=== PATIENT | female | born 1980 | race Caucasian/White ===

== ENCOUNTER 2016-09-22 20:53 | Emergency (ER) | payer OTHER ==
[~2016-09-22] VITALS: Ht 160 cm; Wt 78.0 kg
[~2016-09-22 20:53] MED LIST: ADIPEX-P37.5 MG PO; AMITRIPTYLIN25 MG PO; AZITHROMYCIN250 MG PO; BENTYL10 MG PO; CLARITIN10 M1 PO; CYMBALTA30 MG PO; DILAUDID 2MG2 MG/TA1 PO; DILAUDID2 MG PO; ESTRACE2 MG PO; FIORICE1 PO; FIORICET PO; FLEXERIL5 MG PO; IBUPROFEN600 MG PO; IMITREX50 M1 PO; INDERAL 40MG TA40 MG PO; KEFLEX500 MG PO; LORTAB 10 PO; LORTAB 5-325 MG1 TAB PO; LORTAB5 PO; LYRICA50 MG PO; MEDDOSEPAK PO; METHOCARBAMOL750 MG PO; METOPROL TAR25 MG PO; NAPROSYN500 MG PO; NO CURRENT MEDS; PEPCID20 MG PO; PHENERGAN IN25 MG/ML PO; PHENERGAN25 MG/TAB PO; RESTASIS0.05 % OP; RESTASIS0.05 % OU; SUMATRIPTA1 SC; TAM75CAP OR; TOPIRAMATE25 MG PO; TOPIRAMATE50 MG PO; TORADOL PO; ULTRAM50 M1 PO; ULTRAM50 MG OR; VENLAFAXINE H37.5 MG PO; ZOFRAN ODT4 MG PO; ZOFRAN4 MG/TAB PO; ZYRTEC10 MG PO
[2016-09-22] MEDS ORDERED: IBUPROFEN600 MG PO (22:17)
[2016-09-22] MEDS ORDERED: FLEXERIL PO (22:17)
[2016-09-22 22:39] VITALS: BP 112/76
== END 2016-09-22 22:40 | disposition home or self-care (01) | DRG 552 ==
LOC: ED 20:53
DX: M54.42 Lumbago with sciatica, left side (principal); F17.210 Nicotine dependence, cigarettes, uncomplicated; M79.7 Fibromyalgia; M51.26 Other intervertebral disc displacement, lumbar region

== ENCOUNTER 2016-10-27 21:15 | Emergency (ER) | payer OTHER ==
[~2016-10-27] VITALS: Ht 160 cm; Wt 80.4 kg
[~2016-10-27 21:15] MED LIST changes: +FLEXERIL PO
[2016-10-27] MEDS ORDERED: TRICOR145 MG PO (22:14)
[2016-10-27] MEDS ORDERED: IBUPROFEN600 MG PO (22:59)
[2016-10-27 23:45] VITALS: BP 114/75
== END 2016-10-27 23:45 | disposition home or self-care (01) | DRG 605 ==
LOC: ED 21:15
DX: S60.222A Contusion of left hand, initial encounter (principal); W19.XXXA Unspecified fall, initial encounter; Y93.01 Activity, walking, marching and hiking; Y92.009 Unspecified place in unspecified non-institutional (private) residence as the place of occurrence of the external cause

== ENCOUNTER 2016-11-23 20:54 | Emergency (ER) | payer OTHER ==
[~2016-11-23] VITALS: Ht 160 cm; Wt 80.9 kg
[~2016-11-23 20:54] MED LIST changes: +TRICOR145 MG PO
[2016-11-23 21:40] VITALS: BP 122/78
== END 2016-11-23 21:40 | disposition home or self-care (01) | DRG 552 ==
LOC: ED 20:54
DX: M54.5 Low back pain (principal); F17.210 Nicotine dependence, cigarettes, uncomplicated; G89.29 Other chronic pain; M79.7 Fibromyalgia

== ENCOUNTER 2017-02-19 21:05 | Emergency (ER) | payer OTHER ==
[~2017-02-19] VITALS: Ht 160 cm; Wt 80.0 kg
[2017-02-20] MEDS ORDERED: IBUPROFEN200 MG PO (01:19)
[2017-02-20 02:05] VITALS: BP 114/74
== END 2017-02-20 02:05 | disposition home or self-care (01) | DRG 605 ==
LOC: ED 21:05
DX: S80.02XA Contusion of left knee, initial encounter (principal); F17.210 Nicotine dependence, cigarettes, uncomplicated; W20.8XXA Other cause of strike by thrown, projected or falling object, initial encounter; M79.7 Fibromyalgia; Y92.009 Unspecified place in unspecified non-institutional (private) residence as the place of occurrence of the external cause

== ENCOUNTER 2017-02-22 12:48 | Emergency (ER) | payer OTHER ==
[~2017-02-22] VITALS: Ht 160 cm; Wt 82.0 kg
[~2017-02-22 12:48] MED LIST changes: +IBUPROFEN200 MG PO
[2017-02-22] MEDS ORDERED: ESTRADIOL1 MG PO (13:16)
[2017-02-22] MEDS ORDERED: LYRICA75 MG PO (13:17)
[2017-02-22] MEDS ORDERED: FENOFIBRATE145 MG PO (13:17)
[2017-02-22] MEDS ORDERED: TRAMADOL HYDROC50 MG PO (14:51)
[2017-02-22 15:00] VITALS: BP 121/61
== END 2017-02-22 15:00 | disposition home or self-care (01) | DRG 556 ==
LOC: ED 12:48
DX: M25.562 Pain in left knee (principal); F17.210 Nicotine dependence, cigarettes, uncomplicated; W22.8XXA Striking against or struck by other objects, initial encounter
CPT/HCPCS: L1830